=== PATIENT | male | born 1960 | race Two or more races ===

== ENCOUNTER 2024-02-12 11:20 | Emergency (ER) | payer SELFPAY ==
[~2024-02-12] VITALS: Ht 182.9 cm; Wt 82.0 kg
[2024-02-12 11:23] VITALS: BP 124/88; PULSE 88; RESP 18; TEMP 98; O2SAT 96
== END 2024-02-12 12:45 | disposition home or self-care (01) ==
LOC: ER 11:20
DX: F10.129 Alcohol abuse with intoxication, unspecified (principal); E78.00 Pure hypercholesterolemia, unspecified; I10 Essential (primary) hypertension; Y90.9 Presence of alcohol in blood, level not specified
CPT/HCPCS: 99283